=== PATIENT | male | born 1955 | race Caucasian/White ===

== ENCOUNTER 2019-10-08 17:02 | Emergency (ER) | payer MEDICARE ==
[~2019-10-08] VITALS: Ht 182.9 cm; Wt 98.9 kg
[2019-10-08] MEDS ORDERED: GABAPENTIN100 MG (17:17)
[2019-10-08] MEDS ORDERED: GABAPENTIN300 MG PO (17:18)
--- NOTE | 2019-10-08 17:19 | Emergency Department Note ---
History of Present Illnes History of Present Illness Chief Complaint: rib pain History of Present Illness This is a 64 year old male, with a history of neuropathy, who was working in his attic this afternoon, when he stepped in the wrong place, and fell 8 feet from the ceiling, falling into the closet below. Patient landed onto some plastic containers, injuring the right, lateral chest wall. He has an abrasion on the right elbow, but has full range of motion, denies pain in the elbow. He also denies any head injury or other bodily injury. He has not taken anything for the pain. Historian: Patient, Family Member (spouse) Arrival Mode: Car Additional Treatment EXHIBITOR SALES: None Service Captain Required: No Onset (how long ago): hour(s) (1) Location: right lateral chest wall Quality: aching, Sharp, worse with movement/inspiration Radiation: Reports non-radiation Severity: moderate Onset quality: sudden Duration (how long): hour(s) (1) Timing of current episode: constant Progression: unchanged Chronicity: new Context: Reports trauma/injury; Denies recent illness, Denies recent immobilization, Denies new medications Relieving factors: none Exacerbating factors: none Associated symptoms: Reports denies other symptoms; Denies cough, Denies nausea/vomiting, Denies shortness of breath, Denies weakness Treatments prior to arrival: none Risk factors: Age Past Medical/Family History Physician Review I have reviewed the patient's past medical and family history. Any updates have been documented here. Past Medical History Recent Fever: No Clinical Suspicion of Infectio: No New/Unexplained Change in Ment: No Other Medical History: Neuropathy Other Surgery: Rotator Cuff Left Carpal Tunnel Social History Smoking Cessation: Never Smoker Alcohol Use: None Any Illegal Drug Use: No TB Exposure/Symptoms: No Physically hurt or threatened: No Family History Family history of heart diseas: No Other Last Tetanus: 2 years Any Pre-Existing Lines (PICC,: No Is patient up to date on immun: Yes Review of Systems Review of Systems Constitutional: Denies chills, Denies fever EENTM: Reports no symptoms Cardiovascular: Reports no symptoms Respiratory: Reports pain on inspiration (since falling onto right lateral ribs); Denies chest congestion, Denies cough, Denies hemoptysis, Denies dyspnea, Denies dyspnea on exertion Gastrointestinal: Denies nausea, Denies vomiting Musculoskeletal: Reports muscle pain (overlying the right lateral, lower chest wall), Reports other (superficial abrasion overlying the right elbow); Denies back pain Integumentary: Denies change in color, Denies ecchymosis Psychological: Reports no symptoms Hematological/Lymphatic: Reports no symptoms Physical Exam Related Data Allergies: Coded Allergies: No Known Allergies (Unverified , 10/08/19) Vital signs reviewed: Yes Physical Exam CONSTITUTIONAL Constitutional: Present well-developed, Present well-nourished, Present distressed (in pain, with movement); Absent ill appearing HENT HENT: Present normocephalic, Present atraumatic, Present oropharynx clear/moist, Present nose normal HENT L/R: Present left ext ear normal, Present right ext ear normal EYES Eyes: Reports PERRL, Reports conjunctivae normal NECK Neck: Present ROM normal, Present supple; Absent JVD, Absent cervical adenopathy PULMONARY Pulmonary: Present breath sounds normal, Present chest tenderness (right, lateral, lower chest wall, without crepitus;); Absent respiratory distress CARDIOVASCULAR Cardiovascular: Present regular rhythm, Present heart sounds normal, Present capillary refill normal, Present normal rate; Absent murmur, Absent friction rub GASTROINTESTINAL Abdominal: Present soft, Present nontender GENITOURINARY SKIN Skin: Present warm, Present dry, Present other (superficial abrasion overlying the right elbow, FROM without restriction or pain, and no swelling of right elbow) MUSCULOSKELETAL Musculoskeletal: Present ROM normal, Present tenderness (right lateral rib area); Absent edema NEUROLOGICAL Neurological: Present alert, Present oriented x 3, Present no gross motor or sensory deficits PSYCHOLOGICAL Psychological: Present mood/affect normal, Present judgement normal Results Imaging Imaging results reviewed: Yes Impressions [place] [id number] Patient Name: CLARI GANN MR #: [id number] : 1955 Age/Sex: 64/M Req #: [id number] Adm Physician: Ordered by: ROSEY DUNCAN MD Report #: [id number] Location: [facility] Room/Bed: Procedure: [id number] HOPD/RIBS UNILAT W/CXR- HOPD Exam Date: 10/08/19 Exam Time: 1733 REPORT STATUS: Signed EXAM: RIBS UNILAT W/CXR- HOPD DATE: 10/08/2019 5:33 PM INDICATION: ^fall from attic, landed on right ribs ^[id number] ^1733 COMPARISON: None FINDINGS: PA chest: Heart size normal. No focal pulmonary opacity, pleural effusion or pneumothorax. Upper abdomen unremarkable. Surgical anchors are seen in the right humeral head. Right ribs: AP and oblique views of the right ribs show no displaced fracture. There is no underlying pneumothorax or pneumothorax on the right. Degenerative changes are seen in the thoracic spine. IMPRESSION: 1. No evidence for acute disease in the chest. 2. No right rib fractures. Signed by: Dr. Arlen Castro M.D. on 10/08/2019 6:27 PM Dictated By: ARLEN CASTRO MD 26 Transcribed By: PRABHJOT on 10/08/191826 COPY TO: ROSEY DUNCAN MD~ Assessment & Plan Medical Decision Making MDM Be sure to take good, deep breaths, frequently, to prevent pneumonia. Follow-up with your doctor if you develop fever or begin coughing Return to the ER if you develop chest pain or shortness of breath. Pt and voiced understanding of the plan Assessment & Plan Final Impression: (1) Contusion of rib on right side (2) Right-sided chest wall pain (3) Abrasion of elbow, right (4) Fall Depart Disposition: HOME, SELF-custodial Meds Active Scripts Naproxen (NAPROXEN) 250 Mg Tablet, 500 MG PO Q12H for pain and inflammation, #30 TAB 0 Refills Prov:ROSEY DUNCAN MD 10/08/19 Tramadol Hcl (ULTRAM) 50 Mg Tablet, 1-2 TAB PO Q6H PRN for pain, #30 TAB 0 Refills DO NOT take and drive or operate machinery Prov:ROSEY DUNCAN MD 10/08/19 Reported Medications Gabapentin (GABAPENTIN) 300 Mg Capsule, 300 MG PO HS, #60 CAP 10/08/19 Gabapentin (GABAPENTIN) 100 Mg Capsule, DAILY 10/08/19 ROSEY DUNCAN MD Oct 08, 2019 17:19
[2019-10-08] MEDS ORDERED: HYDROCODONE/APAP 5MG-325MG TAB ONE (17:30)
[2019-10-08] MEDS ORDERED: HYDROCODONE/APAP 5MG-325MG TAB PO ONE (17:30)
--- OUTSIDE RECORDS SUMMARY | 2019-10-08 18:16 | XMS REPORT | Continuity of Care Document ---
Author Author Kane [facility] Organization [facility] Address Unknown Phone Unavailable Care Team Providers [facility] [employer] Name Role Phone [facility] [employer] Unavailable Un available Problems Problem Status Onset Date Classification Date Reported Comments Source G60.9 - HEREDITARY AND IDIOPATHIC NEUR Active 12/18/2017 [facility] [place] M54.31 - SCIATICA, RIGHT SIDE Active 12/10/2017 [facility] DISC BULGE/PERIPHERAL NEUROPATHY Active 09/17/2017 [facility] [place] Medications No Data Provided for This Section Allergies, Adverse Reactions, Alerts No Known Medication Allergies Immunizations No Data Provided for This Section Results No Data Provided for This Section Pathology Reports No Data Provided for This Section Diagnostic Reports Report Value Date Source Spine lumbar wo contrast MRI S pine lumbar wo contrast MRI , 03/24/2018 9:06 AM [employer]. CLINICAL INDICATION: 62 years Male G60.9 Hereditary and idiopathic neuropathy, unspecified, M51.26 Other intervertebral disc displacement, lumbar region - G60.9 Hereditary and idiopathic neuropathy, unspecified, M51.26 Other intervertebral disc displacement, lumbar region . Comparison: TECHNIQUE: Sagittal T1, sagittal T2 with fat saturation, axial T1 and axial T2 images were obtained. FINDINGS: Mild mixed type I and type II (fibrovascular/edematous and fatty) endplate changes at L2-L3 with an intervertebral disc herniation/Schmorl's node in the inferior L2 endplate. Mild type II endplate changes posteriorly at L3-L4 and L4- L5.The vertebrae are otherwise normal in shape, signal intensity and alignment. The paravertebral soft tissues are normal. The conus medullaris terminates normally at the L1-L2 level. There is no intradural mass lesion nor abnormal enlargement of the nerve roots. T12-L1: There is preservation of the disc signal intensity, height, with no bulging, herniation, spinal stenosis, or neural foraminal stenosis. L1-L2: There is preservation of the disc signal intensity, height, with no bulging, herniation, spinal stenosis, or neural foraminal stenosis. L2-L3: Disc is desiccated with mild disc height loss. 4 mm disc bulge with mild facet hypertrophy and ligamentum flavum thickening. No focal disc herniation or significant canal/neural foraminal narrowing. L3-L4: Disc is desiccated with mild disc height loss. 3 mm disc bulge with minimal facet hypertrophy and mild ligamentum flavum thickening. No focal disc herniation or significant canal/neural foraminal narrowing. L4-L5: Disc is desiccated with moderate posterior disc height loss. 3 mm disc bulge with mild facet hypertrophy/spurring and ligamentum flavum thickening. This results in moderate bilateral neural foraminal narrowing with deformity of the L4 nerve roots. No focal disc herniation or significant canal stenosis. L5-S1: Disc is desiccated with mild disc height loss. Midline wide base subligamentous disc protrusion with annular fissuring measures 4 mm with mild facet hypertrophy and ligamentum flavum thickening. This results in moderate left and mild right neural foraminal narrowing slight form in the left L5 nerve root. Mild left greater than right lateral recess narrowing with displacement descending left S1 nerve root. IMPRESSION: 1. A 4 mm disc protrusion with annular f issuring is noted at L5-S1 causing slight displacement of the descending left S1 nerve root. 2. Multilevel foraminal narrowing deform ity of bilateral L4 and left L5 nerve roots. 3. Mixed endplate changes at L2-L3. [facility] [place] Spine lumbar wo contrast CT Ex am: CT lumbar spine without contrast INDICATION: Right-sided sciatica COMPARISON: 01/02/2007 MRI lumbar spine TECHNIQUE: Helical CT images of the lumbar spine were obtained without IV contrast. Coronal and sagittal reformatted images were generated. FINDINGS: Lumbar vertebral body height and alignment are normal in scattered Schmorl's nodes. Decreased intervertebral disc space from L2-L3 through L5-S1, with associated degenerative endplate osteophytosis and sclerosis. The unenhanced prevertebral and paraspinal soft tissues are unremarkable. Included portions of the unenhanced retroperitoneal visceral structures show no acute finding. From T12-L1 through L2-L3, there is no osseous spinal canal or neural foraminal narrowing. At L3-L4, disc bulge flattens the ventral thecal sac. Foraminal components of the disc bulge and posterior osteophytic ridging contribute to mild bilateral neural foraminal narrowing. At L4-L5, disc bulge flattens the ventral thecal sac. Foraminal components of the disc bulge, posterior osteophytic ridging, and facet hypertrophy contribute to bilateral mild-moderate neural foraminal narrowing. At L5-S1, calcified disc bulge flattens the ventral thecal sac. Foraminal components of the disc bulge combined with facet hypertrophy and posterior osteophytic ridging to produce mild-moderate bilateral neural foraminal narrowing. IMPRESSION: Spondylosis, posterior osteophytic ridging, and facet hypertrophy contribute to mild to moderate bony bilateral neural foraminal narrowing at L4-L5 and L5-S1. Spondylosis and spondylolisthesis stenosis at multiple levels in the lumbar spine. 12/12/2017 [facility] Consultation Notes No Data Provided for This Section Discharge Summaries No Data Provided for This Section History and Physicals No Data Provided for This Section Vital Signs No Data Provided for This Section Encounters Location Location Details Encounter Type Encounter Number Reason For Visit Attending Provider ADM Date DC Date Status Source Outpatient [id number] [facility] 05/12/2018 Active [facility] Outpatient [id number] DOLORES GARCIA 05/18/2018 Active [facility] Outpatient [id number] DOLORES GARCIA 05/28/2018 Active [facility] Outpatient [id number] [facility] 12/08/2018 Active [facility] Outpatient [id number] Dolores Garcia 12/09/2018 Active [facility] Outpatient [id number] Dolores Garcia 12/24/2018 [facility] Procedures No Data Provided for This Section Assessment and Plan No Data Provided for This Section Plan of Care No Data Provided for This Section Social History No Data Provided for This Section Family History No Data Provided for This Section Advance Directives No Data Provided for This Section Functional Status No Data Provided for This Section
--- NOTE | 2019-10-08 18:30 | Diagnostic Imaging Report ---
EXAM: RIBS UNILAT W/CXR- HOPD DATE: 10/08/2019 5:33 PM INDICATION: ^fall from attic, landed on right ribs ^[id number] ^1733 COMPARISON: None FINDINGS: PA chest: Heart size normal. No focal pulmonary opacity, pleural effusion or pneumothorax. Upper abdomen unremarkable. Surgical anchors are seen in the right humeral head. Right ribs: AP and oblique views of the right ribs show no displaced fracture. There is no underlying pneumothorax or pneumothorax on the right. Degenerative changes are seen in the thoracic spine. IMPRESSION: 1. No evidence for acute disease in the chest. 2. No right rib fractures. Signed by: Dr. Jacky Arndt M.D. on 10/08/2019 6:27 PM
[2019-10-08] MEDS ORDERED: ULTRAM50 MG PO (19:00)
[2019-10-08] MEDS ORDERED: NAPROXEN250 MG PO (19:01)
--- NOTE | 2019-10-08 19:08 | NUR ---
Report to EDIN Duncan
== END 2019-10-08 19:19 | disposition home or self-care (01) ==
LOC: FSED 17:02
DX: S20.211A Contusion of right front wall of thorax, initial encounter (principal); S50.311A Abrasion of right elbow, initial encounter; W17.89XA Other fall from one level to another, initial encounter; Y92.008 Other place in unspecified non-institutional (private) residence as the place of occurrence of the external cause
CPT/HCPCS: 71101; 99283